=== PATIENT | male | born 1955 | race Caucasian/White ===

== ENCOUNTER 2022-08-22 02:44 | Emergency (ER) | payer MEDICARE ==
[~2022-08-22] VITALS: Ht 175.3 cm; Wt 82.0 kg
[2022-08-22 02:53] VITALS: BP 197/120
== END 2022-08-22 08:54 | disposition left against medical advice (07) ==
LOC: ER 02:44
DX: Z53.21 Procedure and treatment not carried out due to patient leaving prior to being seen by health care provider (principal)